=== PATIENT | male | born 1990 | race Caucasian/White ===

== ENCOUNTER 2018-08-19 17:33 | Emergency (ER) | payer BC ==
[2018-08-19 17:50] VITALS: BP 132/76
--- NOTE | 2018-08-19 17:52 | UC ---
Complaint Male HPI - HPI Summary HPI Summary: 27-year-old male comes to clinic with a chief complaint of feeling a mass on his right testicle. He noticed it yesterday. It is not tender to palpation. He has not been having any testicular or scrotal pain. No abdominal pain. No dysuria no fevers or chills. No prior history of STI's. He has sex with women. He does not have sex with men. Also wishes STI testing. - History of Current Complaint Stated Complaint: LUMP ON TESTICLE Time Seen by Provider: 08/19/18 17:40 - Allergies/Home Medications Allergies/Adverse Reactions: Allergies Allergy/AdvReac Type Severity Reaction Status Date / Time No Known Allergies Allergy Verified 08/19/18 17:50 Home Medications: Home Medications NK [No Home Medications Reported] 08/19/18 [History Confirmed 08/19/18] PMH/Surg Hx/FS Hx/Imm Hx Previously Healthy: Yes - Family History Known Family History: Positive: Non-Contributory Review of Systems All Other Systems Reviewed And Are Negative: Yes Constitutional: Positive: Negative Skin: Positive: Negative Eyes: Positive: Negative ENT: Positive: Negative Respiratory: Positive: Negative Cardiovascular: Positive: Negative Gastrointestinal: Positive: Negative Genitourinary: Positive: Other - SEE HPI. Negative: Dysuria, Vaginal/Penile Discharge Motor: Positive: Negative Neurovascular: Positive: Negative Musculoskeletal: Positive: Negative Neurological: Positive: Negative Psychological: Positive: Negative Is Patient Immunocompromised?: No Physical Exam Triage Information Reviewed: Yes Appearance: Well-Appearing, No Pain Distress, Well-Nourished Vital Signs Reviewed: Yes Eye Exam: Normal Eyes: Positive: Conjunctiva Clear Neck exam: Normal Neck: Positive: Supple Respiratory: Positive: No respiratory distress Male Genital Exam: Positive: Other - No genital lesions. No tenderness to palpation or masses in the inguinal canals. Testicles are nontender to palpation. There is no penile discharge. Testicles are smooth. The right testicle on the underside has 3 mm area of swelling that is firm but not hard. Musculoskeletal Exam: Normal Musculoskeletal: Positive: Strength Intact, ROM Intact Neurological Exam: Normal Neurological: Positive: Alert, Muscle Tone Normal Psychological Exam: Normal Psychological: Positive: Age Appropriate Behavior Skin Exam: Normal Complaint Male Course/Dx - Course Course Of Treatment: Patient Name: SHEMAR ABDI Medical Record#: [id number]. Ordering Physician: Bony Emerson MD Acct.#: [id number]. : 1990 Age: 27 Sex: M Location: [facility]. Exam Date: 08/19/181745 ADM Status: REG ER. Order Information: US TESTICULAR. Accession Number: [id number]. CPT: 05583. EXAM: US Scrotum. EXAM DATE/TIME: 08/19/2018 6:35 PM. CLINICAL HISTORY: 27 years old, male; Signs and symptoms; Other: Bump/lump ; Patient HX: PT. noticed lump 1 day ago. No pain, no swelling. ; Additional info: RT testicular. bump. TECHNIQUE: Real-time ultrasound of the scrotum and contents with color Doppler and image. documentation. COMPARISON: No relevant prior studies available. FINDINGS: Right Testicle: Normal. No intratesticular mass. No torsion. Normal. vascular flow. Adjacent to the medial and superior surface of the right. testicle but superficial to and abutting the tunica albuginea, is an elongated. isoechoic lenticular shaped lesion measuring 1.1 x 0.2 x 1.0 cm, questionable. solid nodule. Possibilities include fibrous pseudotumor or complex cyst of the. tunica albuginea or other benign lesion. This lesion is not painful on exam. Left Testicle: Normal. No mass. No torsion. Normal vascular flow. Epididymides: Normal. Scrotum: See Right Testicle Finding. IMPRESSION: 1. Adjacent to the medial and superior surface of the right testicle but. superficial to and abutting the tunica albuginea, is an elongated isoechoic. lenticular shaped lesion measuring 1.1 x 0.2 x 1.0 cm, questionable solid. nodule. Possibilities include fibrous pseudotumor or complex cyst of the tunica. albuginea or other benign lesion. This lesion is not painful on exam. 2. No testicular torsion, orchitis or epididymitis. To contact [facility] with a general question: Operations Center - [phone]. For direct physician to physician contact: Physician Hotline - [phone]. [facility] ([facility] Facility ID #[id number]). . <Electronically signed by Jeff Malin MD in OV> 08/19/18 [id number]. I discussed the ultrasound report with the patient I discussed the ultrasound report with patient. At this interpretation it appears to be a benign mass in the testicle. The plan is to have the patient follow-up with urology. Gonorrhea chlamydia and HIV are pending. Patient will get reevaluated if he worsens or any questions or concerns. - Differential Dx/Diagnosis Provider Diagnosis: Testicle lump, Routine screening for STI (sexually transmitted infection) Discharge - Sign-Out/Discharge Documenting (check all that apply): Patient Departure All imaging exams completed and their final reports reviewed: Yes - Discharge Plan Condition: Stable Disposition: HOME Patient Education Materials: Testicle Pain (ED) Referrals: Estrada Parker MD [Medical Doctor] - Pablo Pollock MD [Medical Doctor] - Additional Instructions: FOLLOW UP WITH UROLOGY. CALL TOMORROW TO GET AN APPOINTMENT WITH UROLOGY. GET RECHECKED FOR ANY WORSENING OF YOUR CONDITION OR QUESTIONS OR CONCERNS. - Billing Disposition and Condition Condition: STABLE Disposition: Home
[2018-08-21 11:58] LABS: Neisseria gonorrhoeae (GC) RNA Negative (Negative)
== END 2018-08-19 19:55 | disposition home or self-care (01) ==
LOC: UCEAST 17:33
DX: N50.89 Other specified disorders of the male genital organs (principal); Z11.3 Encounter for screening for infections with a predominantly sexual mode of transmission
CPT/HCPCS: 76870; 81003; 87491; 87591; 99201; G0463

== ENCOUNTER 2018-11-03 11:36 | Emergency (ER) | payer BC ==
[2018-11-03 12:34] VITALS: BP 124/81
--- NOTE | 2018-11-03 13:07 | UC ---
Throat Pain/Nasal Sebastian HPI - HPI Summary HPI Summary: 27 y/o male presents to the urgent care c/o sore throat and fever since yesterday. Pt reports this morning he had subjective fever and chills. Pain w/ swallowing. He has taken Ibuprofen PO, last dose taken was around 1030pm. Pt states pain w/ swallowing gis 01/31. His roommates are also w/ similar symptoms. Pt denies QUINTERO. dizziness, cough, SOB, chest pain, abdominal pain, N/V/D. - History of Current Complaint Chief Complaint: UCGeneralIllness Stated Complaint: SORE THROAT Time Seen by Provider: 11/03/18 13:06 Hx Obtained From: Patient Onset/Duration: Gradual Onset, Lasting Days - 1 day, Still Present, Worse Since - this morning Severity: Moderate Pain Intensity: 8 Pain Scale Used: 0-10 Numeric Cough: None Associated Signs & Symptoms: Positive: Dysphagia, Fever. Negative: Sinus Discomfort, Nasal Discharge - Epiglottits Risk Factors Epiglottis Risk Factors: Negative - Allergies/Home Medications Allergies/Adverse Reactions: Allergies Allergy/AdvReac Type Severity Reaction Status Date / Time No Known Allergies Allergy Verified 11/03/18 12:34 PMH/Surg Hx/FS Hx/Imm Hx Previously Healthy: Yes - Pt denies PMHX - Surgical History Surgical History: None - Family History Known Family History: Positive: None - Pt denies FMHX, Non-Contributory - Social History Occupation: Employed Full-time Lives: With Family Alcohol Use: Weekly Substance Use Type: None Smoking Status (MU): Never Smoked Tobacco - Immunization History Vaccination Up to Date: Yes Review of Systems All Other Systems Reviewed And Are Negative: Yes Constitutional: Positive: Fever, Chills Skin: Positive: Negative Eyes: Positive: Negative ENT: Positive: Sore Throat Respiratory: Positive: Negative Cardiovascular: Positive: Negative Gastrointestinal: Positive: Negative Genitourinary: Positive: Negative Motor: Positive: Negative Neurovascular: Positive: Negative Musculoskeletal: Positive: Negative Neurological: Positive: Negative Psychological: Positive: Negative, Anxious Physical Exam - Summary Physical Exam Summary: VITAL SIGNS: Reviewed. GENERAL: Patient is a well developed and nourished male who is sitting comfortable in the examining table. Patient is not in any acute respiratory distress. HEAD AND FACE: No signs of trauma. No ecchymosis, hematomas or skull depressions. No sinus tenderness. EYES: PERRLA, EOMI x 2, No injected conjunctiva, no nystagmus. No photophobia. EARS: Hearing grossly intact. Ear canals and tympanic membranes are within normal limits. MOUTH: Positive pharynx with erythema, exudates, palatal petechiae. B/L tonsillar enlargement with exudate. Uvula in midline. NECK: Supple, trachea is midline, Positive anterior cervical lymphadenopathy, no JVD, no carotid bruit, no c-spine tenderness, neck with full ROM. No meningeal signs, no Kernig's or brudzinskis signs. CHEST: Symmetric, no tenderness at palpation LUNGS: Clear to auscultation bilaterally. No wheezing or crackles. CVS: Regular rate and rhythm, S1 and S2 present, no murmurs or gallops appreciated. ABDOMEN: Soft, non-tender. No signs of distention. No rebound no guarding, and no masses palpated. Bowel sounds are normal. EXTREMITIES: FROM in all major joints, no edema, no cyanosis or clubbing. NEURO: Alert and oriented x 3. No acute neurological deficits. Speech is normal and follows commands. SKIN: Dry and warm Triage Information Reviewed: Yes Vital Signs: Initial Vital Signs Temp 99.0 F 11/03/18 12:27 Pulse 80 11/03/18 12:27 Resp 18 11/03/18 12:27 BP 124/81 11/03/18 12:27 Pulse Ox 98 11/03/18 12:27 Throat Pain/Nasal Course/Dx - Course Course Of Treatment: 27 y/o male presents to the urgent care c/o sore throat and fever since yesterday. Pt reports this morning he had subjective fever and chills. Pain w/ swallowing. He has taken Ibuprofen PO, last dose taken was around 1030pm. Pt states pain w/ swallowing is 8/10. His roommates are also w/ similar symptoms. Pt denies QUINTERO. dizziness, cough, SOB, chest pain, abdominal pain, N/V/D. Hx obtained. Pt w/ pharyngitis on examination. Rapid strep ordered: result: positive. Strep pharyngitis. Rx Amoxicillin PO and Ibuprofen PO for pain and swelling. PT Advised on hand washing to avoid spreading. Also advised to rest, eat well and avoid strenuous exercise. If symptoms do not improve or worsen advised to return to the urgent care or f/u with her PCP for further evaluation and treatment. PT understood and agreed - Differential Dx/Diagnosis Differential Diagnosis/HQI/PQRI: Influenza, Laryngitis, Mononucleosis, Peritonsillar Abscess, Pharyngitis, Tonsillitis, URI Provider Diagnosis: Strep pharyngitis Discharge - Sign-Out/Discharge Documenting (check all that apply): Patient Departure - D/C home All imaging exams completed and their final reports reviewed: No Studies - Discharge Plan Condition: Stable Disposition: HOME Prescriptions: Amoxicillin PO (*) [Amoxicillin 500 MG CAP*] 500 mg PO Q12H #20 cap Ibuprofen TAB* [Motrin TAB* 600 MG] 600 mg PO Q6H PRN #30 tab PRN Reason: Sore Throat Patient Education Materials: Strep Throat (ED) Referrals: [facility] [Outside] - 3 Days Additional Instructions: 1- Please take the full course of the antibiotic to avoid resistance. 2-Please take ibuprofen PO q6-8hrs prn as instructed after meals to alleviate pain and swelling. Increase fluid intake, eat well, rest and avoid strenuous exercise 3-If symptoms do not improve or worsen please return to the urgent care or f/u with your PCP in 3 days for further evaluation and treatment. - Billing Disposition and Condition Condition: STABLE Disposition: Home - Attestation Statements Provider Attestation: I was available for consult. This patient was seen by the BRIGITTE. The patient was not presented to, seen by, or examined by me. -Cathie
== END 2018-11-03 13:34 | disposition home or self-care (01) ==
LOC: UCEAST 11:36
DX: J02.0 Streptococcal pharyngitis (principal)
CPT/HCPCS: 87651; 99212; G0463